=== PATIENT | female | born 1955 | race Hispanic/Latino ===

== ENCOUNTER → 2021-10-04 | Outpatient (CLI) | payer BC, OTHER ==
[~2021-10-04] MED LIST: VALS160T29 PO
== END | disposition home or self-care (01) ==
LOC: RAH 14:50
PROVIDERS: ATTEND Physical Medicine & Rehabilitation
DX: M54.16 Radiculopathy, lumbar region (principal); R29.2 Abnormal reflex
CPT/HCPCS: 72050

== ENCOUNTER 2021-10-24 07:32 | Emergency (ER) | payer OTHER ==
[~2021-10-24] VITALS: Ht 149.9 cm; Wt 97.5 kg
[2021-10-24 07:38] VITALS: BP 138/69
[2021-10-24 08:10] LABS: BASOPHILS % (AUTO) 0.5 % (0.0-5.0); EOSINOPHILS % (AUTO) 0.8 % (0.0-8.0); HEMATOCRIT 43.8 % (36-48); LYMPHOCYTES % (AUTO) 22.7 % (21.0-51.0); MEAN CORPUSCULAR HEMOGLOBIN 31.7 pg (27.0-33.0); MEAN CORPUSCULAR HGB CONC 33.6 g/dL (32.0-36.0); MEAN CORPUSCULAR VOLUME 94.4 fL (79-99); MONOCYTES % (AUTO) 8.7 % (3.0-13.0); NEUTROPHILS % (AUTO) 66.8 % (40.0-77.0); PLATELET COUNT (AUTO) 271 K/uL (130-400); RED BLOOD CELL COUNT(AUTO) 4.64 MIL/uL (4.00-5.50); RED CELL DISTRIBUTION WIDTH 12.6 % (11.0-15.5); WHITE BLOOD COUNT (AUTO) 7.6 K/uL (4.8-10.8)
[2021-10-24] MEDS ORDERED: 0.9%NACL 1000ML 1,000 ML IV ONE (08:30)
[2021-10-24 08:39] LABS: ALBUMIN 3.6 g/dL (3.5-5.0); BILIRUBIN,TOTAL 0.6 mg/dL (0.2-1.0); CREATININE 0.6 mg/dL (0.5-1.5); POTASSIUM 3.8 mmol/L (3.5-5.1); TOTAL PROTEIN, SERUM 7.2 g/dL (6.0-8.3)
[2021-10-24 09:22] LABS: APPEARANCE,URINE CLEAR (CLEAR); BILIRUBIN,URINE NEGATIVE (NEGATIVE); COLOR,URINE YELLOW (YELLOW); GLUCOSE, URINE (UA) NEGATIVE (NEGATIVE); KETONES,URINE 15 mg/dL (NEGATIVE); LEUKOCYTE ESTERASE ,URINE NEGATIVE (NEGATIVE); NITRATE,URINE POSITIVE (NEGATIVE); OCCULT BLOOD,URINE NEGATIVE (NEGATIVE); PH,URINE 7.5 (5.0-8.0); PROTEIN,URINE NEGATIVE (NEGATIVE); UROBILINOGEN,URINE 0.2 mg/dL (0.2-1.0)
[2021-10-24 10:10] LABS: BACTERIA,URINE Few /HPF (None Seen); RBC,URINE 0-1 /HPF (0-1)
[2021-10-24] MEDS ORDERED: SULF1TAB42 PO (10:39)
== END 2021-10-24 11:12 | disposition home or self-care (01) ==
LOC: EDH 07:32
DX: E86.0 Dehydration (principal); I10 Essential (primary) hypertension; K21.9 Gastro-esophageal reflux disease without esophagitis; M19.90 Unspecified osteoarthritis, unspecified site; Z88.0 Allergy status to penicillin; Z79.899 Other long term (current) drug therapy; Z90.49 Acquired absence of other specified parts of digestive tract
CPT/HCPCS: 36415; 80053; 81001; 82550; 84484; 85025; 87088; 93005; 96360; 99284; J7030

== ENCOUNTER 2022-01-15 14:00 | Observation (INO) | payer OTHER ==
[~2022-01-15] VITALS: Ht 149.9 cm; Wt 94.3 kg
[2022-01-15 09:55] LABS: BASOPHILS % (AUTO) 0.6 % (0.0-5.0); EOSINOPHILS % (AUTO) 1.8 % (0.0-8.0); HEMATOCRIT 41.7 % (36-48); MEAN CORPUSCULAR HEMOGLOBIN 31.8 pg (27.0-33.0); MEAN CORPUSCULAR HGB CONC 33.6 g/dL (32.0-36.0); MEAN CORPUSCULAR VOLUME 94.8 fL (79-99); MONOCYTES % (AUTO) 8.9 % (3.0-13.0); NEUTROPHILS % (AUTO) 63.4 % (40.0-77.0); PLATELET COUNT (AUTO) 319 K/uL (130-400); RED CELL DISTRIBUTION WIDTH 12.6 % (11.0-15.5); WHITE BLOOD COUNT (AUTO) 6.5 K/uL (4.8-10.8)
[2022-01-15 10:01] LABS: CREATININE 0.5 mg/dL (0.5-1.5); POTASSIUM 3.6 mmol/L (3.5-5.1)
[2022-01-15 13:37] VITALS: BP 147/66
[~2022-01-15 14:00] MED LIST changes: +ALEN35TA53 PO; +AMLO2.5T4 PO; +GABA-529 PO; +OMEP20CA12 PO; -VALS160T29 PO
[2022-01-16] MEDS ORDERED: CLINDAMYCIN IVPB 900MG/50ML 50 ML IV ONE (09:00)
[2022-01-17] VITALS (28 sets, daily range): BP systolic 84–135; BP diastolic 37–77
[2022-01-17] MEDS ORDERED: LACTATED RINGERS 1000ML 1,000 ML IV ONE (06:17)
[2022-01-17] MEDS ORDERED: CLINDAMYCIN IVPB 900MG/50ML 50 ML IV ONE (06:17)
[2022-01-17] MEDS ORDERED: PROPOFOL 10 MG/ML 20ML VIAL IV ONE (07:16)
[2022-01-17] MEDS ORDERED: FENTANYL CITRATE PF 50 MCG/1 ML 5ML AMP IV ONE (07:16)
[2022-01-17] MEDS ORDERED: ROCURONIUM 10MG/1ML SYR 10 MG/ML ML ONE ×2 (07:16→09:15)
[2022-01-17] MEDS ORDERED: BUPIVACAINE/EPI/PF 0.25% 10ML VIAL IJ ONE (07:20)
[2022-01-17] MEDS ORDERED: CEFAZOLIN SODIUM 1 GM VIAL ONE (07:20)
[2022-01-17] MEDS ORDERED: THROMBIN-JMI 5000 UNIT/VIAL TP ONE (07:21)
[2022-01-17] MEDS ORDERED: MIDAZOLAM HCL 1 MG/ML 2ML VIAL ONE (07:28)
[2022-01-17] MEDS ORDERED: MAGNESIUM SULFATE 1 GM/2 ML VIAL ONE (07:34)
[2022-01-17] MEDS ORDERED: KETAMINE 50MG/ML SYRINGE 50 MG/ML DISP.SYRIN IV ONE (07:34)
[2022-01-17] MEDS ORDERED: DEXMEDETOMIDINE HCL 200 MCG/2 ML VIAL IV ONE (07:37)
[2022-01-17] MEDS ORDERED: BUPIVACAINE/EPI/PF 0.5% 30ML VIAL IJ ONE (08:07)
[2022-01-17] MEDS ORDERED: MANNITOL 20% 500ML BAG 500 ML IV ONE (08:23)
[2022-01-17] MEDS ORDERED: DEXAMETHASONE SOD PHOSPHATE 10MG/ML 1ML VIAL ONE (08:25)
[2022-01-17] MEDS ORDERED: GLYCOPYRROLATE 1 MG/5 ML SYRINGE ONE (09:15)
[2022-01-17] MEDS ORDERED: NEOSTIGMINE 5MG/5ML SYR IV ONE (10:14)
[2022-01-17] MEDS ORDERED: FENTANYL CITRATE PF 50 MCG/1 ML 2ML VIAL ONE ×2 (10:21→11:18)
[2022-01-17] MEDS ORDERED: MORPHINE 2 MG SYG IVP PRN (10:30)
[2022-01-17] MEDS ORDERED: PROMETHAZINE HCL 25 MG/ML 1ML AMPULE IM PRN (10:30)
[2022-01-17] MEDS ORDERED: HYDROCODONE/ACETAMINOPHEN 5/325 MG TAB PO PRN (10:30)
[2022-01-17] MEDS ORDERED: 0.9%NACL 10ML VIAL IVP PRN (10:30)
[2022-01-17] MEDS: DEXAMETHASONE SOD PHOSPHATE 4 MG/ML 1ML VIAL IVP SCH ×3 (10:30→22:34)
[2022-01-17] MEDS ORDERED: EPHEDRINE SULFATE 50 MG/ML AMPULE ONE (10:52)
[2022-01-17] MEDS ORDERED: MORPHINE 4 MG SYG ONE (11:07)
[2022-01-17] MEDS ORDERED: ONDANSETRON 4MG INJ ONE (11:07)
[2022-01-17] MEDS ORDERED: KETOROLAC 30MG VIAL (30MG/ML) ONE (11:53)
[2022-01-17] MEDS: LACTATED RINGERS 1000ML 1,000 ML IV SCH ×2 (12:57→23:58)
[2022-01-17] MEDS ORDERED: CLINDAMYCIN IVPB 900MG/50ML 50 ML IV SCH (14:00)
[2022-01-17] MEDS ORDERED: GABAPENTIN 100 MG CAPSULE PO SCH (21:00)
[2022-01-18 03:40] VITALS: BP 121/50
[2022-01-18] MEDS: DEXAMETHASONE SOD PHOSPHATE 4 MG/ML 1ML VIAL IVP SCH (04:28)
[2022-01-18 08:00] VITALS: BP 144/81
[2022-01-18] MEDS ORDERED: PANTOPRAZOLE 40 MG TAB DR PO SCH (09:00)
[2022-01-18] MEDS ORDERED: AMLODIPINE 2.5 MG TAB PO SCH (09:00)
[2022-01-24] MEDS ORDERED: ALENDRONATE SODIUM 35 MG TAB PO SCH (09:00)
== END 2022-01-18 11:40 | disposition home or self-care (01) ==
LOC: EDSTATUS 01-16 14:00 → DAHIP 01-17 05:30 → 4AH 01-17 11:50
PROVIDERS: ADMIT Neurological Surgery; ATTEND Neurological Surgery
DX: M48.02 Spinal stenosis, cervical region (principal); Z20.822 Contact with and (suspected) exposure to COVID-19; G95.89 Other specified diseases of spinal cord; I10 Essential (primary) hypertension; E66.9 Obesity, unspecified; K21.9 Gastro-esophageal reflux disease without esophagitis; M25.78 Osteophyte, vertebrae; M85.80 Other specified disorders of bone density and structure, unspecified site; Z79.899 Other long term (current) drug therapy; Z88.0 Allergy status to penicillin; Z90.710 Acquired absence of both cervix and uterus
CPT/HCPCS: 80048; 85025; 87426; 36415; 71045; 22551; 20930; 22853; 96376 ×2; 96365; 96375 ×2; 72020; A6260; J1100 ×5; G0378 ×25; A4344; A4649 ×3; J7120 ×3; J3010 ×3; J0690; J3490 ×10; J2710; J3475; J2250; J2704; J2405; J2270; J1885; C1713; A4215; A4223; A4222; A4221; A4663; A4600

== ENCOUNTER 2022-02-13 13:48 | Emergency (ER) | payer OTHER ==
[~2022-02-13] VITALS: Ht 152.4 cm; Wt 91.2 kg
[2022-02-13] MEDS ORDERED: 0.9%NACL 1000ML 1,000 ML IV ONE (15:00)
[2022-02-13] MEDS ORDERED: ONDANSETRON 4MG INJ IVP ONE (15:00)
[2022-02-13 15:22] LABS: BASOPHILS % (AUTO) 0.5 % (0.0-5.0); EOSINOPHILS % (AUTO) 1.6 % (0.0-8.0); HEMATOCRIT 38.5 % (36-48); LYMPHOCYTES % (AUTO) 24.4 % (21.0-51.0); MEAN CORPUSCULAR HEMOGLOBIN 31.8 pg (27.0-33.0); MEAN CORPUSCULAR HGB CONC 34.8 g/dL (32.0-36.0); MEAN CORPUSCULAR VOLUME 91.4 fL (79-99); MONOCYTES % (AUTO) 7.8 % (3.0-13.0); NEUTROPHILS % (AUTO) 65.5 % (40.0-77.0); PLATELET COUNT (AUTO) 178 K/uL (130-400); RED BLOOD CELL COUNT(AUTO) 4.21 MIL/uL (4.00-5.50); RED CELL DISTRIBUTION WIDTH 12.2 % (11.0-15.5); WHITE BLOOD COUNT (AUTO) 6.3 K/uL (4.8-10.8)
[2022-02-13 15:30] LABS: CREATININE 0.6 mg/dL (0.5-1.5); POTASSIUM 3.6 mmol/L (3.5-5.1)
[2022-02-13 15:35] LABS: ALBUMIN 3.7 g/dL (3.5-5.0); TOTAL PROTEIN, SERUM 7.6 g/dL (6.0-8.3)
[2022-02-13] MEDS ORDERED: ONDA4TAB10 PO (16:32)
[2022-02-13 18:09] VITALS: BP 136/72
== END 2022-02-13 18:14 | disposition home or self-care (01) ==
LOC: EDH 13:48
DX: R11.2 Nausea with vomiting, unspecified (principal); E86.0 Dehydration; Z20.822 Contact with and (suspected) exposure to COVID-19; K21.9 Gastro-esophageal reflux disease without esophagitis; Z88.0 Allergy status to penicillin; Z79.899 Other long term (current) drug therapy; Z98.890 Other specified postprocedural states
CPT/HCPCS: 99283; 96374; 87635; 80053; 85025; 87804 ×2; 36415; C9803; J7030; J2405

== ENCOUNTER → 2022-02-19 | Outpatient (CLI) | payer OTHER ==
[~2022-02-19] MED LIST changes: +ONDA4TAB10 PO
== END | disposition home or self-care (01) ==
LOC: RAH 09:43
PROVIDERS: ATTEND Neurological Surgery
DX: M43.22 Fusion of spine, cervical region (principal)
CPT/HCPCS: 72040

== ENCOUNTER → 2023-07-01 | Outpatient (CLI) | payer OTHER | END | disposition home or self-care (01) | LOC: RAH 12:25 | PROVIDERS: ATTEND Physical Medicine & Rehabilitation | DX: M47.26 Other spondylosis with radiculopathy, lumbar region (principal); M47.812 Spondylosis without myelopathy or radiculopathy, cervical region; Z98.1 Arthrodesis status | CPT/HCPCS: 72040; 72114 ==

== ENCOUNTER → 2023-07-02 | Outpatient (CLI) | payer OTHER | END | disposition home or self-care (01) | LOC: RAH 08:58 | PROVIDERS: ATTEND Physical Medicine & Rehabilitation | DX: M79.605 Pain in left leg (principal); M79.602 Pain in left arm; M79.89 Other specified soft tissue disorders; Z88.0 Allergy status to penicillin | CPT/HCPCS: 93971 ==